=== PATIENT | female | born 1930 | race African-American/Black ===

== ENCOUNTER 2018-03-13 16:37 | Inpatient (IN) | payer OTHER ==
[~2018-03-13] VITALS: Ht 154.9 cm; Wt 64.9 kg
[~2018-03-13 16:37] MED LIST: AMLODIPINE; FLUT1DIS IH; GABA100C PO; GLYBURIDE; HYDR-3927 PO; IBUPROFEN; METFORMIN; SERT25TA74 PO
[2018-03-13] MEDS ORDERED: SODIUM CHLORIDE 0.9% 1,000 ML IV ONE (18:30)
[2018-03-13 19:37] LABS: CLARITY URINE CLOUDY (CLEAR); COLOR URINE DARK YELLOW (YELLOW); KETONES URINE TRACE (NEGATIVE); LEUKOCYTE ESTERASE URINE 1+ (NEGATIVE); NITRITE URINE POSITIVE (NEGATIVE); OCCULT BLOOD URINE TRACE (NEGATIVE); PROTEIN URINE 1+ (NEGATIVE); SPECIFIC GRAVITY URINE 1.028 (1.005-1.030)
[2018-03-13 20:02] LABS: BASOPHILS % 0.2 % (0.0-2.0); HEMATOCRIT. 34.9 % (36.0-48.0); HEMOGLOBIN. 11.3 g/dL (12.0-16.0); LYMPHOCYTES % 40.9 % (20.0-50.0); MEAN CORPUSCULAR HEMOGLOBIN 29.6 pg (28.0-32.0); MEAN CORPUSCULAR VOLUME 91.3 fL (81.0-99.0); MEAN PLATELET VOLUME 6.8 fl (7.4-10.4); MONOCYTES % 12.8 % (2.0-8.0); NEUTROPHILS % 46.1 % (40.0-76.0); PLATELET 400 x1000/uL (130-400); RED BLOOD CELL COUNT 3.82 mill/uL (4.2-5.4); RED CELL DISTRIBUTION WIDTH 14.5 % (11.6-14.6)
[2018-03-13 20:09] LABS: CHLORIDE 104 mEq/L (98-107)
[2018-03-13 20:11] LABS: INR 1.1; PROTHROMBIN TIME 10.6 sec (9.1-11.1)
[2018-03-13] MEDS ORDERED: PIPERACILLIN/TAZ 3.375G PREMIX 50 ML IV ONE (21:00)
[2018-03-13] MEDS ORDERED: SODIUM CHLORIDE 0.9% 1000ML BAG (SEPSIS BOLUS) IV ONE (21:00)
[2018-03-14] VITALS (7 sets, daily range): BP systolic 118–139; BP diastolic 44–60
[2018-03-14] MEDS ORDERED: DEXTROSE 50% WATER 50ML SYRINGE IV PRN (06:00)
[2018-03-14] MEDS: BLOOD SUGAR DIAGNOSTIC STRIP TEST SCH ×3 (06:33→21:00)
[2018-03-14] MEDS: SODIUM CHLORIDE 0.45% 1,000 ML IV SCH ×2 (07:13→10:01)
[2018-03-14] MEDS: INSULIN LISPRO 100 UNITS/ML SUBCUT SCH ×3 (07:50→21:00)
[2018-03-14] MEDS: CEFTRIAXONE 1 G PREMIX 50 ML IV SCH (09:44)
[2018-03-14] MEDS: ENOXAPARIN 40MG/0.4ML SYR SUBCUT SCH (09:44)
[2018-03-14] MEDS ORDERED: MECL-127 PO (12:34)
[2018-03-14] MEDS ORDERED: METF-414 MT (12:34)
[2018-03-14] MEDS ORDERED: ASPI-1159 MT (12:34)
[2018-03-14] MEDS ORDERED: BENA5TAB6 MT (12:34)
[2018-03-14] MEDS ORDERED: ONDANSETRON HCL 4MG/2ML INJ IV PRN (17:45)
[2018-03-14] MEDS ORDERED: HYDROCODONE/ACETAMINOPHEN 5/325MG TABLET PO PRN (17:45)
[2018-03-14] MEDS ORDERED: ACETAMINOPHEN 325MG TABLET PO PRN (17:45)
[2018-03-14] MEDS ORDERED: DOCUSATE SODIUM 100MG CAPSULE PO PRN (17:45)
[2018-03-14 18:17] LABS: HEMATOCRIT 29.2 % (36.0-48.0); HEMOGLOBIN 9.5 g/dL (12.0-16.0); MEAN CORPUSCULAR VOLUME 89.2 fL (81.0-99.0); PLATELET 409 x1000/uL (130-400); RED BLOOD CELL COUNT 3.27 mill/uL (4.2-5.4); RED CELL DISTRIBUTION WIDTH 15.2 % (11.6-14.6)
[2018-03-14 18:24] LABS: CHLORIDE 96 mEq/L (98-107)
[2018-03-14 18:32] LABS: LDL CHOLESTEROL 129 mg/dL (5-100)
[2018-03-14] MEDS ORDERED: DIPHENHYDRAMINE 50MG/ML VIAL IV PRN (19:00)
[2018-03-15] VITALS: BP 132/52
[2018-03-15] MEDS: DIPHENHYDRAMINE 50MG/ML VIAL IV PRN ×2 (00:12→22:32)
[2018-03-15 04:00] VITALS: BP 130/50
[2018-03-15] MEDS: BLOOD SUGAR DIAGNOSTIC STRIP TEST SCH ×4 (07:11→20:43)
[2018-03-15] MEDS: INSULIN LISPRO 100 UNITS/ML SUBCUT SCH ×4 (07:50→21:37)
[2018-03-15 08:00] VITALS: BP 115/43
[2018-03-15 08:22] LABS: BG BASE EXCESS 3.7 mmol/L (-2.0-2.0); BG CARBOXYHEMOGLOBIN 1.9 % (0.5-1.5); BG DEOXYHEMOGLOBIN 5.9 % (0.0-5.0); BG FRACTION INSPIRED OXYGEN 21; BG HCO3 ACT 28.4 mmol/L (22.0-26.0); BG METHEMOGLOBIN 0.2 % (0.0-1.5); BG PCO2 43.2 mmHg (35.0-45.0); BG PH 7.435 (7.350-7.450); BG PO2 68.7 mmHg (75.0-100.0); BG SAMPLE SITE RIGHT BRACHIAL; BG TOTAL HEMOGLOBIN 9.2 g/dL (12.0-18.0); BG VENT MODE ROOM AIR
[2018-03-15] MEDS: CEFTRIAXONE 1 G PREMIX 50 ML IV SCH (09:14)
[2018-03-15] MEDS: ENOXAPARIN 40MG/0.4ML SYR SUBCUT SCH (09:14)
[2018-03-15 09:39] LABS: HEMATOCRIT 30.9 % (36.0-48.0); HEMOGLOBIN 10.2 g/dL (12.0-16.0); MEAN CORPUSCULAR HEMOGLOBIN 29.3 pg (28.0-32.0); MEAN CORPUSCULAR VOLUME 88.8 fL (81.0-99.0); PLATELET 472 x1000/uL (130-400); RED BLOOD CELL COUNT 3.48 mill/uL (4.2-5.4); RED CELL DISTRIBUTION WIDTH 14.8 % (11.6-14.6)
[2018-03-15 10:18] LABS: CHLORIDE 99 mEq/L (98-107)
[2018-03-15 10:29] LABS: T4 FREE 1.46 ng/dL (0.76-1.46)
[2018-03-15 12:00] VITALS: BP 125/57
[2018-03-15] MEDS ORDERED: LIDOCAINE HCL/PF 1% 2ML VIAL ONE (14:04)
[2018-03-15 16:00] VITALS: BP_SYST 134; BP_SYST 143; BP_DIAS 52; BP_DIAS 53
[2018-03-15] MEDS ORDERED: VANCOMYCIN 1 G PREMIX 200 ML IV SCH (17:30)
[2018-03-15] MEDS ORDERED: LEVOFLOXACIN 500MG TABLET PO NR (18:00)
[2018-03-15 20:00] VITALS: BP 143/65
[2018-03-16] VITALS: BP 136/62
[2018-03-16 04:00] VITALS: BP 125/52
[2018-03-16] MEDS: BLOOD SUGAR DIAGNOSTIC STRIP TEST SCH ×2 (07:00→12:20)
[2018-03-16] MEDS: INSULIN LISPRO 100 UNITS/ML SUBCUT SCH ×2 (07:50→12:50)
[2018-03-16 08:00] VITALS: BP 134/54
[2018-03-16] MEDS: ENOXAPARIN 40MG/0.4ML SYR SUBCUT SCH (10:44)
[2018-03-16 12:00] VITALS: BP 141/56
[2018-03-16 12:48] LABS: HEMATOCRIT 30.6 % (36.0-48.0); MEAN CORPUSCULAR HEMOGLOBIN 28.8 pg (28.0-32.0); MEAN CORPUSCULAR VOLUME 88.4 fL (81.0-99.0); PLATELET 578 x1000/uL (130-400); RED BLOOD CELL COUNT 3.47 mill/uL (4.2-5.4); RED CELL DISTRIBUTION WIDTH 15.5 % (11.6-14.6)
[2018-03-16 13:03] LABS: CHLORIDE 99 mEq/L (98-107)
[2018-03-16 16:00] VITALS: BP 133/41
[2018-03-16] MEDS ORDERED: LEVOFLOXACIN 250MG TABLET PO SCH (17:00)
[2018-03-16 17:55] VITALS: BP 133/41
== END 2018-03-16 19:00 | DRG 690 ==
LOC: ER 16:37 → 6WST 20:52 → EDBEDREQ 20:54 → EDBEDREQTM 20:54 → ENRESERV 03-14 03:45
PROVIDERS: ADMIT Internal Medicine; ATTEND Internal Medicine
DX: N39.0 Urinary tract infection, site not specified (principal); E87.2 Acidosis; R62.7 Adult failure to thrive; I10 Essential (primary) hypertension; E86.0 Dehydration; D64.9 Anemia, unspecified; E11.9 Type 2 diabetes mellitus without complications; R63.4 Abnormal weight loss; R80.9 Proteinuria, unspecified; R26.9 Unspecified abnormalities of gait and mobility; R31.9 Hematuria, unspecified; M19.90 Unspecified osteoarthritis, unspecified site; Z96.641 Presence of right artificial hip joint; I80.9 Phlebitis and thrombophlebitis of unspecified site; Z83.3 Family history of diabetes mellitus; Z86.73 Personal history of transient ischemic attack (TIA), and cerebral infarction without residual deficits; Z87.891 Personal history of nicotine dependence; Z79.84 Long term (current) use of oral hypoglycemic drugs
CPT/HCPCS: 36415; 36600; 71045; 74176; 80048; 82375; 82805; 82962; 83036; 83605; 83721; 83880; 84145; 84439; 84443; 84484; 85027; 87804; 93005; 93970; 96361; 96365; 97116; 97162; 99285; C1893; J0696; J1200; J1650; J1815; J2543; J3370; J3490; J7030

== ENCOUNTER 2019-03-20 14:55 | Inpatient (IN) | payer MEDICARE, OTHER ==
[~2019-03-20] VITALS: Ht 152.4 cm; Wt 65.8 kg
[~2019-03-20 14:55] MED LIST changes: -AMLODIPINE; +ASPI-1497 MT; -FLUT1DIS IH; -GABA100C PO; -GLYBURIDE; -IBUPROFEN; +MECL-127 PO; +METF-414 MT; -METFORMIN; -SERT25TA74 PO
[2019-03-20] MEDS ORDERED: ASPIRIN 325MG EC TABLET PO ONE (17:30)
[2019-03-20 18:09] LABS: BASOPHILS % 1.3 % (0.0-2.0); EOSINOPHILS % 1.7 % (0.0-5.0); HEMATOCRIT. 36.2 % (36.0-48.0); LYMPHOCYTES % 31.7 % (20.0-50.0); MEAN CORPUSCULAR HEMOGLOBIN 29.6 pg (28.0-32.0); MEAN CORPUSCULAR VOLUME 89.1 fL (81.0-99.0); MONOCYTES % 6.2 % (2.0-8.0); NEUTROPHILS % 59.1 % (40.0-76.0); PLATELET 287 x1000/uL (130-400); RED BLOOD CELL COUNT 4.06 mill/uL (4.2-5.4); RED CELL DISTRIBUTION WIDTH 14.3 % (11.6-14.6)
[2019-03-20 18:16] LABS: INR 1.1; PROTHROMBIN TIME 11.2 sec (9.6-11.0)
[2019-03-20 18:32] LABS: CLARITY URINE CLEAR (CLEAR); COLOR URINE YELLOW (YELLOW); KETONES URINE NEGATIVE (NEGATIVE); LEUKOCYTE ESTERASE URINE TRACE (NEGATIVE); NITRITE URINE NEGATIVE (NEGATIVE); OCCULT BLOOD URINE NEGATIVE (NEGATIVE); PROTEIN URINE NEGATIVE (NEGATIVE); SPECIFIC GRAVITY URINE 1.009 (1.005-1.030); UROBILINOGEN URINE 0.2 E.U./dL (0.2-1.0)
[2019-03-20] MEDS ORDERED: CEFTRIAXONE 1 G PREMIX 50 ML IV NR (19:00)
[2019-03-20 20:06] LABS: CHLORIDE 105 mEq/L (98-107)
[2019-03-20 22:30] VITALS: BP 112/64
[2019-03-21] VITALS (7 sets, daily range): BP systolic 112–146; BP diastolic 51–65
[2019-03-21] MEDS ORDERED: DEXTROSE 50% WATER 50ML SYRINGE IV PRN (01:45)
[2019-03-21] MEDS ORDERED: NON FORMULARY PATIENT HOME MED XX SCH (03:00)
[2019-03-21 06:32] LABS: EOSINOPHILS % 2.9 % (0.0-5.0); HEMATOCRIT. 33.1 % (36.0-48.0); HEMOGLOBIN. 11.2 g/dL (12.0-16.0); LYMPHOCYTES % 37.7 % (20.0-50.0); MEAN CORPUSCULAR HEMOGLOBIN 30.1 pg (28.0-32.0); MEAN CORPUSCULAR VOLUME 89.2 fL (81.0-99.0); MEAN PLATELET VOLUME 9.1 fl (7.4-10.4); NEUTROPHILS % 49.4 % (40.0-76.0); PLATELET 285 x1000/uL (130-400); RED BLOOD CELL COUNT 3.71 mill/uL (4.2-5.4); RED CELL DISTRIBUTION WIDTH 14.1 % (11.6-14.6)
[2019-03-21] MEDS: BLOOD SUGAR DIAGNOSTIC STRIP TEST SCH ×4 (06:54→21:11)
[2019-03-21] MEDS ORDERED: ACETAMINOPHEN 325MG TABLET PO PRN (07:45)
[2019-03-21] MEDS ORDERED: ONDANSETRON HCL 4MG/2ML INJ IV PRN (07:45)
[2019-03-21] MEDS: INSULIN LISPRO 100 UNITS/ML SUBCUT SCH ×4 (07:56→21:00)
[2019-03-21] MEDS ORDERED: METOPROLOL TARTRATE 50MG TABLET PO SCH (09:00)
[2019-03-21] MEDS: APIXABAN 5 MG TABLET PO SCH ×2 (09:13→17:07)
[2019-03-21] MEDS ORDERED: CLONIDINE 0.1MG TABLET PO PRN (11:45)
[2019-03-21] MEDS: METOPROLOL TARTRATE 25MG TABLET PO SCH (21:11)
[2019-03-21] MEDS: ATORVASTATIN CALCIUM 40MG TABLET PO SCH (21:11)
[2019-03-21] MEDS: ZOLPIDEM TARTRATE 5MG TABLET PO PRN (21:45)
[2019-03-22] VITALS: BP 128/72
[2019-03-22 04:00] VITALS: BP 138/54
[2019-03-22] MEDS: BLOOD SUGAR DIAGNOSTIC STRIP TEST SCH ×4 (06:15→21:24)
[2019-03-22 06:35] LABS: *BARBITURATES SCREEN URINE NEGATIVE (NEGATIVE)
[2019-03-22 06:36] LABS: *AMPHETAMINES SCREEN URINE NEGATIVE (NEGATIVE); *BENZODIAZEPINES SCREEN URINE NEGATIVE (NEGATIVE); *COCAINE SCREEN URINE NEGATIVE (NEGATIVE); METHADONE URINE SCREEN NEGATIVE (NEGATIVE); OPIATES URINE SCREEN NEGATIVE (NEGATIVE); PHENCYCLIDINE URINE SCREEN NEGATIVE (NEGATIVE)
[2019-03-22 06:37] LABS: CANNABINOID URINE SCREEN PRESUMTIVE POSITIVE (NEGATIVE)
[2019-03-22 07:29] LABS: BASOPHILS % 0.9 % (0.0-2.0); HEMATOCRIT. 35.5 % (36.0-48.0); HEMOGLOBIN. 11.9 g/dL (12.0-16.0); MEAN CORPUSCULAR HEMOGLOBIN 29.9 pg (28.0-32.0); MEAN CORPUSCULAR VOLUME 89.5 fL (81.0-99.0); MEAN PLATELET VOLUME 8.6 fl (7.4-10.4); MONOCYTES % 7.9 % (2.0-8.0); NEUTROPHILS % 52.2 % (40.0-76.0); PLATELET 305 x1000/uL (130-400); RED BLOOD CELL COUNT 3.97 mill/uL (4.2-5.4); RED CELL DISTRIBUTION WIDTH 14.2 % (11.6-14.6)
[2019-03-22 07:49] LABS: CHLORIDE 106 mEq/L (98-107)
[2019-03-22 07:56] LABS: LDL CHOLESTEROL 73 mg/dL (5-100)
[2019-03-22 07:58] LABS: CREATINE KINASE 63 IU/L (26-192)
[2019-03-22 07:59] LABS: CREATINE KINASE MB FRACTION < 1.0 ng/mL (0.5-3.6); HDL CHOLESTEROL 103 mg/dL (40-59)
[2019-03-22 08:00] VITALS: BP 146/52
[2019-03-22] MEDS: INSULIN LISPRO 100 UNITS/ML SUBCUT SCH ×4 (08:00→21:00)
[2019-03-22] MEDS: APIXABAN 5 MG TABLET PO SCH ×2 (08:52→18:31)
[2019-03-22] MEDS: METOPROLOL TARTRATE 25MG TABLET PO SCH (08:53)
[2019-03-22] MEDS: AMLODIPINE 2.5MG TABLET PO SCH (11:49)
[2019-03-22 12:00] VITALS: BP 139/79
[2019-03-22 16:00] VITALS: BP 145/50
[2019-03-22 20:00] VITALS: BP 110/35
[2019-03-22] MEDS: ATORVASTATIN CALCIUM 40MG TABLET PO SCH (21:22)
[2019-03-22] MEDS: ZOLPIDEM TARTRATE 5MG TABLET PO PRN (21:22)
[2019-03-23] VITALS: BP 121/49
[2019-03-23 04:00] VITALS: BP 116/44
[2019-03-23] MEDS: BLOOD SUGAR DIAGNOSTIC STRIP TEST SCH ×3 (06:03→17:49)
[2019-03-23] MEDS: INSULIN LISPRO 100 UNITS/ML SUBCUT SCH ×3 (07:36→17:49)
[2019-03-23 07:50] LABS: BASOPHILS % 1.2 % (0.0-2.0); EOSINOPHILS % 2.4 % (0.0-5.0); HEMATOCRIT. 36.9 % (36.0-48.0); HEMOGLOBIN. 12.1 g/dL (12.0-16.0); LYMPHOCYTES % 39.9 % (20.0-50.0); MEAN CORPUSCULAR HEMOGLOBIN 29.6 pg (28.0-32.0); MEAN PLATELET VOLUME 8.3 fl (7.4-10.4); MONOCYTES % 9.7 % (2.0-8.0); NEUTROPHILS % 46.8 % (40.0-76.0); PLATELET 276 x1000/uL (130-400); RED CELL DISTRIBUTION WIDTH 13.9 % (11.6-14.6)
[2019-03-23 08:00] VITALS: BP 108/51
[2019-03-23] MEDS: AMLODIPINE 2.5MG TABLET PO SCH (08:28)
[2019-03-23] MEDS: APIXABAN 5 MG TABLET PO SCH ×2 (08:28→17:56)
[2019-03-23 08:41] LABS: CHLORIDE 106 mEq/L (98-107)
[2019-03-23 12:00] VITALS: BP 121/61
[2019-03-23] MEDS ORDERED: LIP40 PO (14:18)
[2019-03-23] MEDS ORDERED: APIX5TAB PO (14:18)
[2019-03-23 15:59] VITALS: BP 121/61
[2019-03-23 16:00] VITALS: BP 138/76
== END 2019-03-23 18:19 | disposition home or self-care (01) | DRG 690 ==
LOC: ER 14:55 → EDBEDREQ 20:29 → EDBEDREQTM 20:29 → ENRESERV 21:02 → 7WST 22:13
PROVIDERS: ADMIT Internal Medicine; ATTEND Internal Medicine
DX: N39.0 Urinary tract infection, site not specified (principal); I48.91 Unspecified atrial fibrillation; F12.90 Cannabis use, unspecified, uncomplicated; E11.9 Type 2 diabetes mellitus without complications; D72.819 Decreased white blood cell count, unspecified; E78.5 Hyperlipidemia, unspecified; R00.1 Bradycardia, unspecified; Z96.641 Presence of right artificial hip joint; F17.210 Nicotine dependence, cigarettes, uncomplicated; Z79.82 Long term (current) use of aspirin; Z86.73 Personal history of transient ischemic attack (TIA), and cerebral infarction without residual deficits; Z83.3 Family history of diabetes mellitus
CPT/HCPCS: 36415; 71045; 80048; 80053; 80061; 80305; 81003; 82550; 82553; 82962; 83735; 83880; 84443; 84484; 85025; 85379; 93005; 93306; 93970; 99285; J0696; J7040